=== PATIENT | male | born 1995 | race Caucasian/White ===

== ENCOUNTER 2019-08-26 20:46 | Inpatient (IN) | payer BC, OTHER ==
--- NOTE | 2019-08-26 21:13 | ED ---
General Adult HPI <Fabi Arellano - Last Filed: 08/26/19 22:42> - General Source: patient, police, RN notes reviewed, old records reviewed Mode of arrival: ambulatory Limitations: no limitations <Car Lewis - Last Filed: 08/27/19 03:38> - General Chief complaint: Psychiatric Symptoms Stated complaint: Suicidal statements Time Seen by Provider: 08/26/19 20:54 - History of Present Illness Initial comments: 24-year-old male patient presents to ED for evaluation of suicidal ideations. Patient was reportedly posting videos online of him making suicidal statements. Patient also reportedly had a mound of a powder on these videos has reportedly a benzodiazepine or possibly fentanyl. Police Department did bring patient in. Patient states that he is not feeling suicidal at this time. Denies doing anything to hurt himself or taking any drugs. Denies any homicidal ideations. Denies any physical complaints. Systemic: Pt denies fatigue, fever/chills, rash. Pt denies weakness, night swe ats, weight loss. Neuro: Pt denies headache, visual disturbances, syncope or pre-syncope. HEENT: Pt denies ocular discharge or irritation, otalgia, rhinorrhea, pharyngitis or notable lymphadenopathy. Cardiopulmonary: Pt denies chest pain, SOB, heart palpitations, dyspnea on exertion. Abdominal/GI: Pt denies abdominal pain, n/v/d. : Pt denies dysuria, burning w/ urination, frequency/urgency. Denies new onset urinary or bowel incontinence. MSK: Pt denies myalgia, loss of strength or function in extremities. Neuro: Pt denies new onset weakness, paresthesias. (Car Lewis) - Related Data Allergies Allergy/AdvReac Type Severity Reaction Status Date / Time No Known Allergies Allergy Verified 08/26/19 20:52 Review of Systems ROS Other: All systems not noted in ROS Statement are negative. <Fabi Arellano - Last Filed: 08/26/19 22:42> ROS Other: All systems not noted in ROS Statement are negative. <Car Lewis - Last Filed: 08/27/19 03:38> ROS Statement: Those systems with pertinent positive or pertinent negative responses have been documented in the HPI. Past Medical History Past Medical History: No Reported History History of Any Multi-Drug Resistant Organisms: None Reported Past Surgical History: No Surgical Hx Reported Past Psychological History: Anxiety Smoking Status: Current every day smoker Past Alcohol Use History: None Reported <Car Lewis - Last Filed: 08/27/19 03:38> General Exam Limitations: no limitations <Car Lewis - Last Filed: 08/27/19 03:38> - General Exam Comments Initial Comments: Constitutional: NAD, AOX3, Pt has pleasant affect. HEENT: NC/AT, trachea midline, neck supple, no lymphadenopathy. Posterior pharynx non erythematous, without exudates. External ears appear normal, without discharge. Mucous membranes moist. Eyes PERRLA, EOM intact. There is no scleral icterus. No pallor noted. Cardiopulmonary: RRR, no murmurs, rubs or gallops, no JVD noted. Lungs CTAB in anterior and posterior lobo. No peripheral edema. Abdominal exam: Abdomen soft and non-distended. Abdomen non-tender to palpation in all 4 quadrants. Bowel sounds active in LLQ. No hepatosplenomegaly. No ecchymosis Neuro: CN II-XII grossly intact. No nuchal rigidity. No raccon eyes, no ibarra sign, no hemotympanum. No cervical spinal tenderness. MSK: No posterior calf tenderness bilaterally, homans sign negative bilaterally. Posterior tibialis and radial pulse +2 bilaterally. Sensation intact in upper and lower extremities. Full active ROM in upper and lower extremities, 5/5 stregnth. (Car Lewis) Course Vital Signs 08/26/19 08/27/19 20:47 02:42 Temperature 97.7 F Pulse Rate 80 89 Respiratory 18 18 Rate Blood Pressure 132/78 117/63 O2 Sat by Pulse 100 96 Oximetry Medical Decision Making <Fabi Arellano - Last Filed: 08/26/19 22:42> - Lab Data Result diagrams: 08/26/19 22:46 08/26/19 22:46 - EKG Data -: EKG Interpreted by Me (and Dr. Arellano ) <Car Lewis - Last Filed: 08/27/19 03:38> - Medical Decision Making I personally saw and evaluated the patient who admitted to making suicidal statements, admitted depression and polysubstance abuse. Patient reports she is currently on methadone but abuses fentanyl and is on high doses of benzodiazepines. Patient states that he is worried he will withdraw here in the emergency department. Given patient's history and suicidal statements I agree with the emergency psychiatric service assessment that the patient requires inpatient psychiatric care. I completed the psychiatric certification. Patient will be treated for possible withdrawal here in the emergency department. (Fabi Arellano) 24-year-old male patient presents to ED for evaluation of suicidal ideations. Patient was reportedly posting videos online of him making suicidal statements. Patient also reportedly had a mound of a powder on these videos has reportedly a benzodiazepine or possibly fentanyl. Police Department did bring patient in. Patient states that he is not feeling suicidal at this time. Denies doing anything to hurt himself or taking any drugs. Denies any homicidal ideations. Denies any physical complaints. Patient vital signs are stable, afebrile. Physical exam did not display acute pathology. Patient was evaluated by EPS who recommended admission. They do request that patient is observed in ED until morning. Laboratory investigations are significant for UDS positive for opiates, methadone, benzodiazepines, cocaine. EKG is nonischemic. Case discussed with Dr. Arellano. (Car Lewis) - Lab Data Lab Results 08/26/19 08/26/19 08/27/19 Range/Units 22:46 22:46 02:44 WBC 8.1 (3.8-10.6) k/uL RBC 5.14 (4.30-5.90) m/uL Hgb 14.3 (13.0-17.5) gm/dL Hct 44.1 (39.0-53.0) % MCV 85.8 (80.0-100.0) fL MCH 27.9 (25.0-35.0) pg MCHC 32.5 (31.0-37.0) g/dL RDW 13.3 (11.5-15.5) % Plt Count 206 (150-450) k/uL Neutrophils % 43 % Lymphocytes % 40 % Monocytes % 7 % Eosinophils % 8 % Basophils % 0 % Neutrophils # 3.5 (1.3-7.7) k/uL Lymphocytes # 3.2 (1.0-4.8) k/uL Monocytes # 0.5 (0-1.0) k/uL Eosinophils # 0.6 (0-0.7) k/uL Basophils # 0.0 (0-0.2) k/uL Sodium 139 (137-145) mmol/L Potassium 4.4 (3.5-5.1) mmol/L Chloride 100 (98-107) mmol/L Carbon Dioxide 30 (22-30) mmol/L Anion Gap 9 mmol/L BUN 17 (9-20) mg/dL Creatinine 0.63 L (0.66-1.25) mg/dL Est GFR (CKD-EPI)AfAm >90 (>60 ml/min/1.73 sqM) Est GFR (CKD-EPI)NonAf >90 (>60 ml/min/1.73 sqM) Glucose 92 (74-99) mg/dL Calcium 10.1 (8.4-10.2) mg/dL Total Bilirubin 0.4 (0.2-1.3) mg/dL AST 42 (17-59) U/L ALT 44 (4-49) U/L Alkaline Phosphatase 114 (38-126) U/L Total Protein 7.9 (6.3-8.2) g/dL Albumin 4.8 (3.5-5.0) g/dL Salicylates <1.0 mg/dL Urine Opiates Screen Detected H (NotDetected) Ur Oxycodone Screen Not Detected (NotDetected) Urine Methadone Screen Detected H (NotDetected) Ur Propoxyphene Screen Not Detected (NotDetected) Acetaminophen <10.0 ug/mL Ur Barbiturates Screen Not Detected (NotDetected) U Tricyclic Antidepress Not Detected (NotDetected) Ur Phencyclidine Scrn Not Detected (NotDetected) Ur Amphetamines Screen Not Detected (NotDetected) U Methamphetamines Scrn Not Detected (NotDetected) U Benzodiazepines Scrn Detected H (NotDetected) Urine Cocaine Screen Detected H (NotDetected) U Marijuana (THC) Screen Not Detected (NotDetected) - EKG Data EKG Comments: Ventricular rate 96, OR ubtervak 154, QRS 88, QT/QTc 388/490, NSR, No concern for acute ischemia. (Car Lewis) Disposition <Fabi Arellano - Last Filed: 08/26/19 22:42> Is patient prescribed a controlled substance at d/c from ED?: No <Car Lewis - Last Filed: 08/27/19 03:38> Clinical Impression: Depression, Polysubstance abuse Disposition: ADMITTED IP TO THIS HOSP Condition: Serious Referrals: None,Stated [Primary Care Provider] - 1-2 days
[2019-08-26] MEDS ORDERED: ALPRAZolam 0.5 MG TAB PO STA (21:43)
[2019-08-26] MEDS ORDERED: SODIUM CHLORIDE 0.9% 1,000 ML IV ONE (22:31)
[2019-08-26] MEDS ORDERED: LORazepam 2 MG/ML INJ IV STA (22:35)
[2019-08-26 23:16] LABS: Basophils % (A) 0 %; Eosinophils # (A) 0.6 k/uL (0-0.7); Eosinophils % (A) 8 %; HCT 44.1 % (39.0-53.0); HGB 14.3 gm/dL (13.0-17.5); Lymphocytes # (A) 3.2 k/uL (1.0-4.8); Lymphocytes % (A) 40 %; MCH 27.9 pg (25.0-35.0); MCHC 32.5 g/dL (31.0-37.0); MCV 85.8 fL (80.0-100.0); Mean Platelet Volume 8.1; Monocytes # (A) 0.5 k/uL (0-1.0); Monocytes % (A) 7 %; Neutrophils # (A) 3.5 k/uL (1.3-7.7); Neutrophils % (A) 43 %; Platelet Count 206 k/uL (150-450); RBC 5.14 m/uL (4.30-5.90); RDW 13.3 % (11.5-15.5); WBC 8.1 k/uL (3.8-10.6)
[2019-08-26 23:34] LABS: ALT 44 U/L (4-49); AST 42 U/L (17-59); Acetaminophen <10.0 ug/mL; African American GFR (CKD) >90 (>60 ml/min/1.73 sqM); Albumin 4.8 g/dL (3.5-5.0); Alkaline Phosphatase 114 U/L (38-126); Anion Gap 9 mmol/L; Blood Urea Nitrogen 17 mg/dL (9-20); Calcium 10.1 mg/dL (8.4-10.2); Carbon Dioxide 30 mmol/L (22-30); Chloride 100 mmol/L (98-107); Glucose 92 mg/dL (74-99); Non-African American GFR(CKD) >90 (>60 ml/min/1.73 sqM); Potassium 4.4 mmol/L (3.5-5.1); Salicylate <1.0 mg/dL; Sodium 139 mmol/L (137-145); Total Bilirubin 0.4 mg/dL (0.2-1.3); Total Protein 7.9 g/dL (6.3-8.2)
[2019-08-27 03:11] LABS: Amphetamine Screen,Urine Not Detected (NotDetected); Barbiturate Screen,Urine Not Detected (NotDetected); Benzodiazepines Screen,Urine Detected (NotDetected); Cocaine Screen,Urine Detected (NotDetected); Methadone Screen, Urine Detected (NotDetected); Opiate Screen,Urine Detected (NotDetected); Oxycodone Screen, Urine Not Detected (NotDetected); Phencyclidine Screen,Urine Not Detected (NotDetected); Tricyclic Antidepressant,Urine Not Detected (NotDetected); Urn Cannabinoid Scrn Not Detected (NotDetected)
[2019-08-27] MEDS ORDERED: MAG HYDROX/AL HYDROX/SIMETH 30 ML CUP PO PRN (09:30)
[2019-08-27] MEDS ORDERED: ACETAMINOPHEN TAB 325 MG TAB PO PRN (09:30)
[2019-08-27] MEDS ORDERED: MAGNESIUM HYDROXIDE 2,400 MG/10 ML CUP PO PRN (09:30)
[2019-08-27] MEDS: NICOTINE 21MG/24HR PATCH TRANSDERM SCH ×3 (10:14→17:00)
[2019-08-27] MEDS: METHADONE 10 MG TAB PO SCH (11:24)
[2019-08-27] MEDS: ALPRAZolam 1 MG TAB PO PRN ×2 (11:25→19:52)
[2019-08-27] MEDS ORDERED: ZIPRASIDONE 20 MG VIAL IM PRN (11:34)
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
[2019-08-27] MEDS ORDERED: ONDANSETRON 4 MG TAB PO PRN (13:21)
[2019-08-27] MEDS ORDERED: DICYCLOMINE 20 MG TAB PO PRN (13:21)
[2019-08-27] MEDS: IBUPROFEN 600 MG TAB PO PRN (13:39)
--- NOTE | 2019-08-27 17:52 | P.MDCNMH ---
History of Present Illness H&P Date: 08/27/19 Chief Complaint: Medical management 24-year-old male with no significant past medical history presents to the ED after police was contacted after patient made videos on of him posting suicidal gestures along with amount of powder reportedly benzodiazepine or fentanyl. He was subsequently admitted for further monitoring. [facility] physicians has been consulted for medical management of this patient. Patient was seen and examined. No acute events overnight. Patient reports symptoms of opiate withdrawal. The symptoms include frontal headache along with nausea and chills. He denies any lower extremity edema, vomiting, fever, cough, chest pain, shortness of breath, changes in urination or bowel habits. No changes in appetite or weight. He denies any dizziness, numb ness/weakness/tingling of the extremities. Patient does report daily fentanyl use of 0.5 g along with cocaine. Patient states that he has a strong tolerance to benzodiazepines. He has been on a methadone program out [facility] receiving 30 mg daily. Chart review shows stable vital signs. CBC was unremarkable. CMP showed creatinine of 0.63. UDS was positive for opiates, methadone, benzodiazepine and cocaine. Acetaminophen level was negative. Salicylate level was negative. Review of Systems Pertinent positives and negatives as discussed in HPI, a complete review of systems was performed and all other systems are negative. Past Medical History Past Medical History: No Reported History History of Any Multi-Drug Resistant Organisms: None Reported Past Surgical History: No Surgical Hx Reported Past Psychological History: Anxiety Smoking Status: Current every day smoker Past Alcohol Use History: None Reported Medications and Allergies Home Medications Medication Instructions Recorded Confirmed Type ALPRAZolam [Xanax] 2 mg PO Q12H 08/27/19 08/27/19 History Prazosin HCl 1 mg PO HS 08/27/19 08/27/19 History QUEtiapine FUMARATE 50 - 100 mg PO HS 08/27/19 08/27/19 History Allergies Allergy/AdvReac Type Severity Reaction Status Date / Time No Known Allergies Allergy Verified 08/27/19 09:11 Physical Exam Vitals: Vital Signs Temp Pulse Pulse Resp BP BP Pulse Ox 08/27/19 17:40 98.0 F 08/27/19 08:35 97.0 F L 79 20 123/77 100 08/27/19 08:24 73 20 120/71 98 08/27/19 08:00 18 08/27/19 02:42 89 18 117/63 96 08/26/19 20:47 97.7 F 80 18 132/78 100 Intake and Output 08/27/19 08/27/19 08/27/19 06:59 14:59 22:59 Other: Weight 84.538 kg General: [non toxic], [no distress], [appears at stated age] Derm: [warm], [dry] Head: [atraumatic], [normocephalic], [symmetric] Eyes: [EOMI], [no lid lag], [anicteric sclera] Mouth: [no lip lesion], [mucus membranes moist] Cardiovascular: [S1S2 reg], [no murmur], [positive posterior tibial pulse bilateral], Lungs: [CTA bilateral], [no rhonchi, no rales] , [no accessory muscle use] Abdominal: [soft], [ nontender to palpation], [no guarding], [no appreciable organomegaly] Ext: [no gross muscle atrophy], [no edema], [no contractures] Neuro: [ CN II-XI grossly intact], [no focal neuro deficits] Psych: [Alert], [oriented], [appropriate affect] Cranial Nerve Examination - Cranial Nerves Cranial Nerve II- Optic: Intact Cranial Nerve III- Oculomotor: Intact Cranial Nerve IV- Trochlear: Intact Cranial Nerve V- Trigeminal: Intact Cranial Nerve - Abducens: Intact Cranial Nerve VII- Facial: Intact Cranial Nerve VIII- Auditory: Intact Cranial Nerve IX- Glossopharyngeal: Intact Cranial Nerve X- Vagus: Intact Cranial Nerve XI- Accessory: Intact Cranial Nerve XII- Hypoglossal: Intact Results CBC & Chem 7: 08/26/19 22:46 08/26/19 22:46 Labs: Abnormal Lab Results - Last 24 Hours (Table) 08/26/19 08/27/19 Range/Units 22:46 02:44 Creatinine 0.63 L (0.66-1.25) mg/dL Urine Opiates Screen Detected H (NotDetected) Urine Methadone Screen Detected H (NotDetected) U Benzodiazepines Scrn Detected H (NotDetected) Urine Cocaine Screen Detected H (NotDetected) Assessment and Plan Assessment: Polysubstance abuse including opiates, benzodiazepine and cocaine Nicotine addiction Patient's UDS was positive for opiates, benzodiazepine and cocaine. He is continued on methadone 30 mg by mouth daily at this time. He is being given Xanax 1 mg by mouth 3 times a day as needed for anxiety. Zofran as needed for nausea or vomiting. Patient also has nicotine patch. Thank you for this consult. Please call with any additional questions or concerns.
[2019-08-27] MEDS ORDERED: QUEtiapine 50 MG TAB PO SCH (21:00)
[2019-08-27] MEDS ORDERED: PRAZOSIN 1 MG CAP PO SCH (21:00)
[2019-08-28] MEDS: ALPRAZolam 1 MG TAB PO PRN ×2 (04:27→12:01)
[2019-08-28 04:30] VITALS: RESP 14; TEMP 97.9
[2019-08-28 07:17] LABS: Basophils % (A) 0 %; Eosinophils # (A) 0.2 k/uL (0-0.7); Eosinophils % (A) 4 %; HCT 40.8 % (39.0-53.0); HGB 13.1 gm/dL (13.0-17.5); Lymphocytes # (A) 2.8 k/uL (1.0-4.8); Lymphocytes % (A) 45 %; MCHC 32.1 g/dL (31.0-37.0); MCV 87.2 fL (80.0-100.0); Mean Platelet Volume 7.9; Monocytes # (A) 0.5 k/uL (0-1.0); Monocytes % (A) 8 %; Neutrophils # (A) 2.6 k/uL (1.3-7.7); Neutrophils % (A) 42 %; Platelet Count 179 k/uL (150-450); RBC 4.68 m/uL (4.30-5.90); RDW 13.2 % (11.5-15.5); WBC 6.3 k/uL (3.8-10.6)
[2019-08-28 07:27] LABS: ALT 31 U/L (4-49); AST 25 U/L (17-59); African American GFR (CKD) >90 (>60 ml/min/1.73 sqM); Albumin 3.9 g/dL (3.5-5.0); Alkaline Phosphatase 87 U/L (38-126); Anion Gap 7 mmol/L; Bilirubin,Unconjugated 0.6 mg/dL (0.0-1.1); Blood Urea Nitrogen 19 mg/dL (9-20); Calcium 9.7 mg/dL (8.4-10.2); Carbon Dioxide 30 mmol/L (22-30); Chloride 103 mmol/L (98-107); Glucose 92 mg/dL (74-99); Non-African American GFR(CKD) >90 (>60 ml/min/1.73 sqM); Potassium 3.8 mmol/L (3.5-5.1); Sodium 140 mmol/L (137-145); Total Bilirubin 0.4 mg/dL (0.2-1.3); Total Protein 6.7 g/dL (6.3-8.2)
[2019-08-28] MEDS: NICOTINE 21MG/24HR PATCH TRANSDERM SCH (09:08)
[2019-08-28] MEDS: METHADONE 10 MG TAB PO SCH (09:08)
[2019-08-28] MEDS: IBUPROFEN 600 MG TAB PO PRN (09:53)
[2019-08-28 12:02] VITALS: BP 125/73; PULSE 93
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
[2019-08-28] MEDS ORDERED: QUEtiapine 25 MG TAB PO SCH (21:00)
== END 2019-08-28 15:14 | disposition home or self-care (01) | DRG 881 ==
LOC: EC 20:46 → 3MHU 08-27 08:10
PROVIDERS: ADMIT Psychiatry & Neurology Psychiatry; ATTEND Psychiatry & Neurology Psychiatry
DX: F32.9 Major depressive disorder, single episode, unspecified (principal); F11.20 Opioid dependence, uncomplicated; R45.851 Suicidal ideations; F13.10 Sedative, hypnotic or anxiolytic abuse, uncomplicated; F14.10 Cocaine abuse, uncomplicated; F17.200 Nicotine dependence, unspecified, uncomplicated; F43.10 Post-traumatic stress disorder, unspecified; F41.9 Anxiety disorder, unspecified; Z62.810 Personal history of physical and sexual abuse in childhood; Z65.3 Problems related to other legal circumstances; Z79.899 Other long term (current) drug therapy
CPT/HCPCS: 36415; 80053; 80306; 80329; 82075; 82248; 83036; 83520; 84443; 85025; 93005; 96361; 96374; 99285

== ENCOUNTER 2019-10-17 12:08 | Emergency (ER) | payer BC ==
[2019-10-17 12:14] VITALS: RESP 18
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
[2019-10-17 15:15] LABS: Appearance,Urine Clear (Clear); Bilirubin,Urine Negative (Negative); Blood,Urine Negative (Negative); Color,Urine Yellow; Glucose,Urine (UA) Negative (Negative); Ketones,Urine Negative (Negative); Leukocyte Esterase,Urine Negative (Negative); Nitrite,Urine Negative (Negative); Protein,Urine Trace (Negative); Specific Gravity,Urine 1.027 (1.001-1.035)
[2019-10-17 15:24] LABS: Amphetamine Screen,Urine Not Detected (NotDetected); Barbiturate Screen,Urine Not Detected (NotDetected); Benzodiazepines Screen,Urine Detected (NotDetected); Cocaine Screen,Urine Not Detected (NotDetected); Methadone Screen, Urine Detected (NotDetected); Opiate Screen,Urine Not Detected (NotDetected); Oxycodone Screen, Urine Not Detected (NotDetected); Phencyclidine Screen,Urine Not Detected (NotDetected); Tricyclic Antidepressant,Urine Not Detected (NotDetected); Urn Cannabinoid Scrn Detected (NotDetected)
[2019-10-17 16:03] VITALS: BP 118/84; PULSE 78; TEMP 98
[2019-10-17] MEDS ORDERED: LIDOCAINE 5% PATCH TOPICAL STA (16:50)
== END 2019-10-17 17:16 | disposition home or self-care (01) ==
LOC: EC 12:08
DX: F19.10 Other psychoactive substance abuse, uncomplicated (principal); R07.81 Pleurodynia; S70.01XA Contusion of right hip, initial encounter; F41.9 Anxiety disorder, unspecified; F17.200 Nicotine dependence, unspecified, uncomplicated; Z79.899 Other long term (current) drug therapy; V49.40XA Driver injured in collision with unspecified motor vehicles in traffic accident, initial encounter; Y92.410 Unspecified street and highway as the place of occurrence of the external cause
CPT/HCPCS: 73502; 80306; 81003; 82075; 99284

== ENCOUNTER 2021-09-18 15:49 | Emergency (ER) | payer BC ==
[2021-09-18 15:57] VITALS: TEMP 98.2
[2021-09-18] MEDS ORDERED: ONDANSETRON 4 MG/2 ML VIAL IVP STA ×2 (17:02→19:23)
[2021-09-18] MEDS ORDERED: SODIUM CHLORIDE 0.9% 2,000 ML IV STA (17:02)
[2021-09-18] MEDS ORDERED: cloNIDine HCL 0.1 MG TAB PO STA (17:03)
[2021-09-18] MEDS ORDERED: LORazepam 2 MG/ML INJ IV STA ×2 (17:03→19:23)
[2021-09-18 17:42] LABS: Basophils % (A) 0 %; Eosinophils % (A) 1 %; Lymphocytes # (A) 1.1 k/uL (1.0-4.8); Lymphocytes % (A) 19 %; MCH 28.7 pg (25.0-35.0); MCHC 33.3 g/dL (31.0-37.0); MCV 86.1 fL (80.0-100.0); Mean Platelet Volume 8.9; Monocytes # (A) 0.2 k/uL (0-1.0); Monocytes % (A) 4 %; Neutrophils # (A) 4.1 k/uL (1.3-7.7); Neutrophils % (A) 75 %; Platelet Count 181 k/uL (150-450); RBC 4.88 m/uL (4.30-5.90); RDW 12.5 % (11.5-15.5); WBC 5.5 k/uL (3.8-10.6)
[2021-09-18 17:52] LABS: ALT 20 U/L (4-49); AST 21 U/L (17-59); African American GFR (CKD) >90 (>60 ml/min/1.73 sqM); Albumin 4.8 g/dL (3.5-5.0); Alkaline Phosphatase 72 U/L (38-126); Anion Gap 13 mmol/L; Blood Urea Nitrogen 26 mg/dL (9-20); Carbon Dioxide 23 mmol/L (22-30); Chloride 102 mmol/L (98-107); Glucose 99 mg/dL (74-99); Lipase 37 U/L (23-300); Non-African American GFR(CKD) >90 (>60 ml/min/1.73 sqM); Potassium 4.2 mmol/L (3.5-5.1); Sodium 138 mmol/L (137-145); Total Bilirubin 0.6 mg/dL (0.2-1.3); Total Protein 7.7 g/dL (6.3-8.2)
--- NOTE | 2021-09-18 19:10 | ED ---
General Adult HPI - General Chief complaint: Nausea/Vomiting/Diarrhea Stated complaint: Detoxing Time Seen by Provider: 09/18/21 16:30 Source: patient Mode of arrival: ambulatory Limitations: no limitations - History of Present Illness Initial comments: 26-year-old male presents to the emergency department reporting that he is detoxing from benzodiazepines and opiates. Patient is normally prescribed 2 mg of Xanax twice daily by his primary care physician for anxiety. Reports that he does abuse this medication and takes it in excess. He also snorts Fentanyl which is not prescribed to him. Yesterday he was in trouble with police and bases all of his medication as well as the narcotics. States he has not taken any Xanax or fentanyl in the past 48 hours. Today he began developing withdrawal symptoms which include anxiousness, nausea, vomiting and heart racing. Family at bedside has been attempting to get him into a rehab facility. He denies any seizure history from withdrawal. No suicidal or homicidal ideations. No other alleviating, precipitating or modifying factors - Related Data Home Medications Medication Instructions Recorded Confirmed ALPRAZolam [Xanax] 2 mg PO BID 08/27/19 10/17/19 QUEtiapine FUMARATE 100 mg PO HS 08/27/19 10/17/19 Methadone (Unknown Dose) 1 tab PO DAILY 10/17/19 10/17/19 Previous Rx's Medication Instructions Recorded ALPRAZolam [Xanax] 2 mg PO Q12H 3 Days #6 tab 09/18/21 Ondansetron Odt [Zofran Odt] 4 mg PO Q8HR PRN #10 tab 09/18/21 cloNIDine HCL 0.1 mg PO TID PRN #9 tablet 09/18/21 Allergies Allergy/AdvReac Type Severity Reaction Status Date / Time No Known Allergies Allergy Verified 09/18/21 15:58 Review of Systems ROS Statement: Those systems with pertinent positive or pertinent negative responses have been documented in the HPI. ROS Other: All systems not noted in ROS Statement are negative. Past Medical History Past Medical History: No Reported History History of Any Multi-Drug Resistant Organisms: None Reported Past Surgical History: No Surgical Hx Reported Past Psychological History: Anxiety Smoking Status: Never smoker Past Alcohol Use History: None Reported Past Drug Use History: Heroin, Marijuana General Exam Limitations: no limitations General appearance: alert, in no apparent distress Head exam: Present: atraumatic, normocephalic, normal inspection Eye exam: Present: normal appearance, PERRL, EOMI. Absent: scleral icterus, conjunctival injection, periorbital swelling ENT exam: Present: normal exam, mucous membranes moist Neck exam: Present: normal inspection. Absent: tenderness, meningismus, lymphadenopathy Respiratory exam: Present: normal lung sounds bilaterally. Absent: respiratory distress, wheezes, rales, rhonchi, stridor Cardiovascular Exam: Present: regular rate, normal rhythm, normal heart sounds. Absent: systolic murmur, diastolic murmur, rubs, gallop, clicks GI/Abdominal exam: Present: soft, normal bowel sounds. Absent: distended, tenderness, guarding, rebound, rigid Extremities exam: Present: normal inspection, full ROM, normal capillary refill. Absent: tenderness, pedal edema, joint swelling, calf tenderness Back exam: Present: normal inspection Neurological exam: Present: alert, oriented X3, CN II-XII intact Psychiatric exam: Present: normal affect, normal mood Skin exam: Present: warm, dry, intact, normal color. Absent: rash Course Vital Signs 09/18/21 09/18/21 09/18/21 15:51 16:32 19:32 Temperature 98.2 F Pulse Rate 87 76 63 Respiratory 18 18 16 Rate Blood Pressure 127/84 123/84 112/66 O2 Sat by Pulse 100 98 98 Oximetry Medical Decision Making - Medical Decision Making Upon arrival patient is placed into room 26. A thorough history and physical exam was performed. IV access established. Patient is given a 2 L bolus of normal saline, former grams of Zofran, 1 mg of Ativan and 0.1 mg of clonidine. Laboratory studies are reviewed and within normal limits. Vitals within normal limits. Patient given a second dose of Ativan and Zofran. Feels comfortable with discharge home at this time. Family is on the phone with the rehab facility that states that the patient must call back in the morning for possible discharges. Patient is given a short prescription for benzodiazepines as well as clonidine and Zofran. Instructed on proper use. He will be discharged home in the care of his parents. Instructed to return for any worsening symptoms. Patient was discharged in stable condition - Lab Data Result diagrams: 09/18/21 17:28 09/18/21 17:28 Lab Results 09/18/21 09/18/21 Range/Units 17:28 17:28 WBC 5.5 (3.8-10.6) k/uL RBC 4.88 (4.30-5.90) m/uL Hgb 14.0 (13.0-17.5) gm/dL Hct 42.0 (39.0-53.0) % MCV 86.1 (80.0-100.0) fL MCH 28.7 (25.0-35.0) pg MCHC 33.3 (31.0-37.0) g/dL RDW 12.5 (11.5-15.5) % Plt Count 181 (150-450) k/uL MPV 8.9 Neutrophils % 75 % Lymphocytes % 19 % Monocytes % 4 % Eosinophils % 1 % Basophils % 0 % Neutrophils # 4.1 (1.3-7.7) k/uL Lymphocytes # 1.1 (1.0-4.8) k/uL Monocytes # 0.2 (0-1.0) k/uL Eosinophils # 0.0 (0-0.7) k/uL Basophils # 0.0 (0-0.2) k/uL Sodium 138 (137-145) mmol/L Potassium 4.2 (3.5-5.1) mmol/L Chloride 102 (98-107) mmol/L Carbon Dioxide 23 (22-30) mmol/L Anion Gap 13 mmol/L BUN 26 H (9-20) mg/dL Creatinine 0.80 (0.66-1.25) mg/dL Est GFR (CKD-EPI)AfAm >90 (>60 ml/min/1.73 sqM) Est GFR (CKD-EPI)NonAf >90 (>60 ml/min/1.73 sqM) Glucose 99 (74-99) mg/dL Calcium 10.0 (8.4-10.2) mg/dL Total Bilirubin 0.6 (0.2-1.3) mg/dL AST 21 (17-59) U/L ALT 20 (4-49) U/L Alkaline Phosphatase 72 (38-126) U/L Total Protein 7.7 (6.3-8.2) g/dL Albumin 4.8 (3.5-5.0) g/dL Lipase 37 (23-300) U/L Disposition Clinical Impression: Polysubstance abuse, Benzodiazepine withdrawal Disposition: HOME SELF-CARE Condition: Stable Instructions (If sedation given, give patient instructions): Opioid Withdrawal (ED) Additional Instructions: Call tomorrow to check the status of your bed at the treatment center. Return for any new or worsening symptoms. Prescriptions: cloNIDine HCL 0.1 mg PO TID PRN #9 tablet PRN Reason: Agitation Or Acute Anxiety ALPRAZolam [Xanax] 2 mg PO Q12H 3 Days #6 tab Ondansetron Odt [Zofran Odt] 4 mg PO Q8HR PRN #10 tab PRN Reason: Nausea Is patient prescribed a controlled substance at d/c from ED?: Yes When asked, does pt state using other controlled substances?: No If prescribed controlled substance>3 days was MAPS reviewed?: Prescribed <3 Days Referrals: Denny Belcher MD [Primary Care Provider] - 1-2 days Time of Disposition: 19:10
[2021-09-18 19:32] VITALS: BP 112/66; PULSE 63; RESP 16
== END 2021-09-18 19:54 | disposition home or self-care (01) ==
LOC: EC 15:49
DX: F19.239 Other psychoactive substance dependence with withdrawal, unspecified (principal)
CPT/HCPCS: 36415; 80053; 83690; 85025; 99284; 96375; 96374; 96376; 96361; J2060; J2405

== ENCOUNTER 2023-07-21 17:40 | Inpatient (IN) | payer BC, OTHER ==
--- NOTE | 2023-07-21 18:10 | ED ---
General Adult HPI - General Source: patient, police, RN notes reviewed <Brittney Mays - Last Filed: 07/21/23 22:53> <Fahad Dcikerson - Last Filed: 07/21/23 23:24> - General Stated complaint: Petition Time Seen by Provider: 07/21/23 18:09 - History of Present Illness Initial comments: Patient is a 28-year-old male presented ER with chief complaint of EPS evaluation. Patient court petitioned. Patient denies any SI/HI/hallucinations. Denies any drugs or alcohol use today. Per court order patient was making threats to county officials. Patient sent here for evaluation. (Brittney Mays) - Related Data Home Medications Medication Instructions Recorded Confirmed No Known Home Medications 07/21/23 07/21/23 Allergies Allergy/AdvReac Type Severity Reaction Status Date / Time No Known Allergies Allergy Verified 07/21/23 20:52 Review of Systems ROS Other: All systems not noted in ROS Statement are negative. <Brittney Mays - Last Filed: 07/21/23 22:53> ROS Other: All systems not noted in ROS Statement are negative. <Fahad Dickerson - Last Filed: 07/21/23 23:24> ROS Statement: Those systems with pertinent positive or pertinent negative responses have been documented in the HPI. Past Medical History Past Medical History: No Reported History History of Any Multi-Drug Resistant Organisms: None Reported Past Surgical History: No Surgical Hx Reported Past Psychological History: Anxiety Smoking Status: Never smoker Past Alcohol Use History: None Reported Past Drug Use History: Heroin, Marijuana <Brittney Mays - Last Filed: 07/21/23 22:53> General Exam General appearance: alert, in no apparent distress Head exam: Present: atraumatic, normocephalic, normal inspection Eye exam: Present: normal appearance, PERRL, EOMI. Absent: scleral icterus, conjunctival injection, periorbital swelling Respiratory exam: Present: normal lung sounds bilaterally. Absent: respiratory distress, wheezes, rales, rhonchi, stridor Cardiovascular Exam: Present: regular rate, normal rhythm, normal heart sounds. Absent: systolic murmur, diastolic murmur, rubs, gallop, clicks Neurological exam: Present: alert, oriented X3, CN II-XII intact Psychiatric exam: Present: normal affect, normal mood Skin exam: Present: warm, dry, intact, normal color. Absent: rash <Brittney Mays - Last Filed: 07/21/23 22:53> - General Exam Comments Initial Comments: Visual Physical Exam Vital signs reviewed General: Well-appearing, nontoxic, no acute distress. Head: Normocephalic, atraumatic Eyes: PERRLA, EOMI ENT: Airway patent Chest: Nonlabored breathing Skin: No visual rash, normal skin tone Neuro: Alert and oriented 3 Musculoskeletal: No gross abnormalities (Brittney Mays) Course Vital Signs 07/21/23 18:20 Temperature 98 F Pulse Rate 86 Respiratory 18 Rate Blood Pressure 112/78 O2 Sat by Pulse 99 Oximetry Medical Decision Making <Brittney Mays - Last Filed: 07/21/23 22:53> <Fahad Dickerson - Last Filed: 07/21/23 23:24> - Medical Decision Making I performed the quick note portion of the exam. Electronically signed by Brittney Mays PA-C Was pt. sent in by a medical professional or institution ([facility], FUSE SPOOLER, urgent care, hospital, or usp...) When possible be specific @ -No Did you speak to anyone other than the patient for history (EMS, parent, family, police, friend...)? What history was obtained from this source @ -Police as patient is petitioned for EPS evaluation. Did you review nursing and triage notes (agree or disagree)? Why? @ -I reviewed and agree with nursing and triage notes Were old charts reviewed (outside hosp., previous admission, EMS record, old EKG, old radiological studies, urgent care reports/EKG's, usp records)? Report findings @ -No old charts were reviewed Differential Diagnosis (chest pain, altered mental status, abdominal pain women, abdominal pain men, vaginal bleeding, weakness, fever, dyspnea, syncope, headache, dizziness, GI bleed, back pain, seizure, CVA, palpatations, mental health, musculoskeletal)? @ -Differential Mental Health Depression, anxiety, bipolar, psychosis, schizophrenia, borderline personality, situational depression, adjustment disorder, behavioral disorder, brain tumor, malingering, substance abuse, encephalopathy, medication reaction, dementia, hypothyroidism, degenerative neurologic disorder, lupus.... This is not meant to be all-inclusive list EKG interpreted by me (3pts min.). @ -None X-rays interpreted by me (1pt min.). @ -None done CT interpreted by me (1pt min.). @ -None done U/S interpreted by me (1pt. min.). @ -None done What testing was considered but not performed or refused? (CT, X-rays, U/S, labs)? Why? @ -None What meds were considered but not given or refused? Why? @ -None Did you discuss the management of the patient with other professionals (professionals i.e. , PA, FUSE SPOOLER, lab, RT, psych nurse, social services coordinator, rebrander, teacher, hydrographical technical officer, case making machine operator)? Give summary @ -Yes, I discussed this case with Chhaya PEARSON RN who reports patient will be admitted for further treatment. Was smoking cessation discussed for >3mins.? @ -No Was critical care preformed (if so, how long)? @ -No Were there social determinants of health that impacted care today? How? (Homelessness, low income, unemployed, alcoholism, drug addiction, transportation, low edu. Level, literacy, decrease access to med. care, custodial, rehab)? @ -Homeless, unemployed, recently released from custodial Was there de-escalation of care discussed even if they declined (Discuss DNR or withdrawal of care, Hospice)? DNR status @ -No What co-morbidities impacted this encounter? (DM, HTN, Smoking, COPD, CAD, Cancer, CVA, ARF, Chemo, Hep., AIDS, mental health diagnosis, sleep apnea, morbid obesity)? @ -Mental health Was patient admitted / discharged? Hospital course, mention meds given and route, prescriptions, significant lab abnormalities, going to OR and other pertinent info. @ -Admitted. Patient is a 28 year old male presenting to the ER via police per court order for mental health evaluation. Patient in no signs of acute distress and nontoxic-appearing. Patient cleared for EPS evaluation. I spoke with Chhaya PEARSON RN who reports patient will be admitted for further care and treatment. Undiagnosed new problem with uncertain prognosis? @ -No Drug Therapy requiring intensive monitoring for toxicity (Heparin, Nitro, Insulin, Cardizem)? @ -No Were any procedures done? @ -No Diagnosis/symptom? @ -Mental health evaluation Acute, or Chronic, or Acute on Chronic? @ -Acute Uncomplicated (without systemic symptoms) or Complicated (systemic symptoms)? @ -Uncomplicated Side effects of treatment? @ -No Exacerbation, Progression, or Severe Exacerbation? @ -No Poses a threat to life or bodily function? How? (Chest pain, USA, CA, pneumonia, PE, COPD, DKA, ARF, appy, cholecystitis, CVA, Diverticulitis, Homicidal, Suicidal, threat to staff... and all critical care pts) @ -Yes, patient has made threats to government officials. (Brittney Mays) Patient was pending psychiatric evaluation. I spoke with EPS who believes the patient should be admitted to inpatient psychiatry based on his presentation. Clinical certificate was completed by myself. Patient made aware of the plans. (Fahad Dickerson) Disposition Time of Disposition: 22:57 <Brittney Mays - Last Filed: 07/21/23 22:53> <Fahad Dickerson - Last Filed: 07/21/23 23:24> Clinical Impression: Mental health disorder Disposition: ADMITTED IP TO THIS HOSP Condition: Stable Referrals: None,Stated [Primary Care Provider] - 1-2 days
[2023-07-21] MEDS: NICOTINE 21MG/24HR PATCH TRANSDERM STA (23:29)
[2023-07-21 23:34] LABS: Amphetamine Screen,Urine Not Detected (NotDetected); Barbiturate Screen,Urine Not Detected (NotDetected); Benzodiazepines Screen,Urine Not Detected (NotDetected); Cocaine Screen,Urine Not Detected (NotDetected); Methadone Screen, Urine Not Detected (NotDetected); Opiate Screen,Urine Not Detected (NotDetected); Oxycodone Screen, Urine Not Detected (NotDetected); Phencyclidine Screen,Urine Not Detected (NotDetected); Tricyclic Antidepressant,Urine Not Detected (NotDetected); Urn Cannabinoid Scrn Detected (NotDetected)
[2023-07-22] MEDS ORDERED: HALOPERIDOL LACTATE 5 MG/ML 1 ML VIAL IM PRN (02:47)
[2023-07-22] MEDS ORDERED: LORazepam 2 MG/ML INJ IM PRN (02:48)
[2023-07-22] MEDS ORDERED: MAGNESIUM HYDROXIDE 2,400 MG/30 ML CUP PO PRN (02:50)
[2023-07-22] MEDS ORDERED: MAG HYDROX/AL HYDROX/SIMETH 30 ML CUP PO PRN (02:50)
[2023-07-22] MEDS: NICOTINE 21MG/24HR PATCH TRANSDERM SCH (08:52)
--- NOTE | 2023-07-22 14:14 | P.HP ---
Psychiatric H&P - . H&P Date: 07/22/23 History & Physical: Allergies Allergy/AdvReac Type Severity Reaction Status Date / Time No Known Allergies Allergy Verified 07/21/23 20:52 Vital Signs Temp 97.4 F L 07/22/23 02:26 Pulse 94 07/22/23 02:26 Resp 16 07/22/23 02:26 BP 112/78 07/21/23 18:20 Pulse Ox 99 07/22/23 02:26 FiO2 Intake & Output 07/21/23 07/22/23 07/22/23 18:59 06:59 18:59 Weight 81.647 kg 75.5 kg Laboratory Last Values Urine Opiates Screen Not Detected (NotDetected) 07/21/23 22:53 Ur Oxycodone Screen Not Detected (NotDetected) 07/21/23 22:53 Urine Methadone Screen Not Detected (NotDetected) 07/21/23 22:53 Ur Barbiturates Screen Not Detected (NotDetected) 07/21/23 22:53 U Tricyclic Antidepress Not Detected (NotDetected) 07/21/23 22:53 Ur Phencyclidine Scrn Not Detected (NotDetected) 07/21/23 22:53 Ur Amphetamines Screen Not Detected (NotDetected) 07/21/23 22:53 U Methamphetamines Scrn Not Detected (NotDetected) 07/21/23 22:53 U Benzodiazepines Scrn Not Detected (NotDetected) 07/21/23 22:53 Urine Cocaine Screen Not Detected (NotDetected) 07/21/23 22:53 U Marijuana (THC) Screen Detected (NotDetected) H 07/21/23 22:53 SARS-CoV-2 (PCR) Not Detected (Not Detectd) 07/21/23 22:45 07/22/23 08:17 IDENTIFYING DATA: Patient is a 28-year-old male who currently is homeless, and is currently unemployed and has no kids. 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 HPI: Patient presented to the hospital on 07/21. As per EPS note, "Pt was brought in by PD on a learning support services director order. Pt was petitioned by his corrections case dueñas. Pt was recently kicked out of the skilled nursing in [place], [place]. He was emailing fire prevention chief and making threats. He has been accusing the skilled nursing of embezzlement. During assessment pt is hyperverbal and tangential. Pt is cooperative with RN but visibly upset about being at the hospital. Pt speaks about about [employer] form and his all caps name and getting his declaration status, and that he is a 14th amend citizen. "I gave my all caps names and they thought I was an artificial person, I am going to respresent myself from now on". Pt rambles and is fixated on the government. Pt has a lack of insight into his mental health and need for treatment. "You all just think I am crazy". Pt is not on any medications. No current medical issues. Pt is homeless with no resources. He has no finances and per petition not caring for his own needs. No supports. Recently arrested and on probation, His initial charge was delivering/manufacturing drugs per pt. He states that he was dealing drugs and was using substances at that time. He denies any recent use of ETOH or substances." Patient states his PO sent him to [facility] for an eval, because of threatening emails that he had sent to the [facility] court. States he told the court they should be charged with [facility] felony suresh. He is focused on court, the government, etc. States he has no problems with his mood or anxiety. States that he has no problems sleeping, or with his appetite. Patient states that he is the most mentally stable that he has been in years. Patient was rambling, delusional, endorsing paranoia. Focused on discharge. Very poor insight and judgment. He states he does not want to take medication. Pension Adviser explained the court process to the patient. Patient stated he is Patient denies any suicidal or homicidal ideations intent or plan. At this time patient denies any auditory or visual hallucinations. Patient denies any flight of ideas racing thoughts and increased in goal directed behavior. Patient admits to using marijuana. Patients UDS positive for marijuana. PAST PSYCHIATRIC HISTORY: Patient states that he has a history of anxiety and depression and polysubstance abuse. Last on this unit in August of 2019. No psychiatric follow up, did see dr Hdez years ago. Denies suicide attempts in the past. PMH:As per ER note ALLERGIES: as per EMR CHEMICAL DEPENDENCY HISTORY: as per HPI FAMILY PSYCHIATRIC/SUBSTANCE USE HISTORY:denies SOCIAL HISTORY: Patient was born and raised in [place], [place] and moved to [place] and is now living in [place]. He states that he is homeless , currently unemployed . Patient claims that he has 2 years of college and recently transferred to a different college before taking the year off. Is currently on probation for delivery and manufacturing of drugs. MENTAL STATUS EXAM: General Appearance: Patient appears to be stated age is alert, difficult to direct, intrusive and demanding. Patient appears to have fair hygiene and grooming. Multiple tattoos. Wearing street clothing. Behavior: Patient is seated without any agitated behavior. Guarded/evasive. Minimizing need for treatment Speech: Patient's speech is fluent and nonpressured. Circumstantial. Rapid Mood/Affect: Patient reports their mood is "great", affect is congruent and constricted. Evasive, minimizing need for treatment Suicidality/Homicidality: Patient denies having any homicidal ideation intent or plan. Denies any suicidal ideations intent or plan Perceptions: Patient denies any visual hallucinations and denies any auditory hallucinations Though content/process: Demanding, preoccupied with discharge. Memory and concentration: AOX3, grossly intact for the purposes of this session. Can spell "WORLD" backwards Judgment and insight: poor/impulsive STRENGTHS/WEAKNESSES: strength is that patient is resilient. Weakness is that patient has poor judgment and is impulsive INTELLECT: average IMPRESSIONS: psychosis, unspecified cannabis use disorder PLAN: -Patient is admitted under involuntary status to [facility]HU for stabilization of psychiatric symptoms and safety. Patient has not signed adult voluntary form or medication consent and is placed in patient's chart. A second certification was completed and along with petition will be filed for court. -Medications : Will start patient on Abilify 5mg daily for mood stabilization, trazodone 100 mg nightly as needed for sleep. -Ativan and Haldol PRN for agitation/aggression -Patient was counselled on substance abuse and desired to cut back on use -Patient was informed of the risks, benefits and side effects of the medication -Internal Medicine consult to perform medical evaluation and physical. -NRT - nonsmoker -SW on board for discharge planning. Encourage patient to participate in groups to work on coping skills. Will await deferral and court date. 07/22/23 13:29 07/22/23 14:12
[2023-07-22] MEDS: ARIPiprazole 5 MG TAB PO SCH (14:50)
[2023-07-22] MEDS: LORazepam 1 MG TAB PO PRN (14:50)
[2023-07-22] MEDS: haloperidoL 5 MG TAB PO PRN (15:55)
[2023-07-22] MEDS: NICOTINE GUM (POLACRILEX) 2 MG GUM BUCCAL PRN (15:56)
[2023-07-22] MEDS: ACETAMINOPHEN TAB 325 MG TAB PO PRN (20:11)
[2023-07-22] MEDS: traZODone HCL 100 MG TAB PO PRN (20:52)
[2023-07-23 07:31] LABS: Basophils % (A) 1 %; Eosinophils % (A) 1 %; HCT 44.2 % (39.0-53.0); HGB 15.1 gm/dL (13.0-17.5); Lymphocytes # (A) 1.5 k/uL (1.0-4.8); Lymphocytes % (A) 34 %; MCHC 34.1 g/dL (31.0-37.0); Mean Platelet Volume 9.4; Monocytes # (A) 0.3 k/uL (0-1.0); Monocytes % (A) 7 %; Neutrophils # (A) 2.4 k/uL (1.3-7.7); Neutrophils % (A) 55 %; Platelet Count 141 k/uL (150-450); RBC 5.02 m/uL (4.30-5.90); RDW 12.7 % (11.5-15.5); WBC 4.3 k/uL (3.8-10.6)
[2023-07-23 08:02] LABS: ALT 19 U/L (4-49); AST 21 U/L (17-59); African American GFR (CKD) >90 (>60 ml/min/1.73 sqM); Albumin 4.6 g/dL (3.5-5.0); Alkaline Phosphatase 74 U/L (38-126); Anion Gap 9 mmol/L; Blood Urea Nitrogen 24 mg/dL (9-20); Calcium 9.7 mg/dL (8.4-10.2); Carbon Dioxide 24 mmol/L (22-30); Chloride 107 mmol/L (98-107); Glucose 91 mg/dL (74-99); Non-African American GFR(CKD) >90 (>60 ml/min/1.73 sqM); Potassium 4.4 mmol/L (3.5-5.1); Sodium 140 mmol/L (137-145); Total Bilirubin 0.8 mg/dL (0.2-1.3)
--- NOTE | 2023-07-23 22:55 | P.PN ---
Progress Note - Text Progress Note Date: 07/23/23 Interval History: The patient was seen today as coverage for Dr. Palm. Their chart was reviewed, and the case was discussed with the nursing staff. The patient reports fair sleep and appetite. The patient has been participating in groups and other unit activities. The patient has been taking their psychiatric medications and denies side effects. The patient reports feeling more stable mentally and minimizes depression and anxiety symptoms. He presents with more organized thoughts and behavior. Speech was not rapid and patient was responding to redirection. He was fixated on discharge. The patient denies suicidal or homicidal ideation. There are no reports of delusions, or hallucinat ions. MENTAL STATUS EXAM: General Appearance: Patient appears to be stated age is alert, fair hygiene and grooming. Wearing street clothing. Behavior: Patient is seated without any agitated behavior. Guarded/evasive. Speech: Patient's speech is fluent and non pressured. Circumstantial. Mood/Affect: Patient reports their mood is "anxious" affect is congruent and constricted. Suicidal /Homicidal risk: Patient denies having any homicidal ideation intent or plan. Denies any suicidal ideation intent or plan Perceptions: Patient denies any visual hallucinations and denies any auditory flanagan llucinations Though content/process: Demanding, preoccupied with discharge. Memory and concentration: AOX3, grossly intact for the purposes of this session. Judgment and insight: poor/impulsive IMPRESSIONS: psychosis, unspecified cannabis use disorder History of PTSD PLAN: -Patient is admitted under involuntary status to [facility] for stabilization of psychiatric symptoms and safety. Patient has not signed adult voluntary form or medication consent and is placed in patient's chart. A second certification was completed and along with petition will be filed for court. Continue inpatient psychiatric hospitalization. Implement the following precautions as recommended by the admitting psychiatrist: elopement and suicide. Consult the medical team immediately if any medical concerns arise. Educate the patient on the benefits of participating in groups and other unit activities and encourage active participation. Medications: Continue Abilify 5mg daily for mood stabilization, Continue Trazodone 100 mg nightly as needed for sleep. Continue PRN psychiatric Medications including Ativan and Haldol PRN for agitation/aggression
[2023-07-24 08:32] LABS: Chol/HDL Ratio 2.31 Ratio; LDL Cholesterol,Calculated 62.6 mg/dL (0.0-131.0)
--- NOTE | 2023-07-25 10:32 | P.PN ---
Progress Note - Text Progress Note Date: 07/25/23 Interval History: Patient was seen wandering the hallways and was directable and agreeable to sp meme with commercial real estate underwriter in the office. Patient states he is a little anxious at this time, just from being hospitalized. He has been compliant with medications, and offers no complaints. Patient is fairly focused on discharge and seeing his city marshal. He was fairly superficial today with commercial real estate underwriter. Minimizing his need for hospitalization. Patient claims he is sleeping well at night, and his appetite is good. He is attending groups, and doing well on the unit. At this time patient denies any suicidal or homical ideations, intent or plan. Patient denies any auditory, visual hallucinations and denies any paranoia or delusions. Patient denies any side effects from the medications and has been compliant with meds. MENTAL STATUS EXAM: General Appearance: Patient appears to be stated age is alert, difficult to direct, intrusive and demanding. Patient appears to have fair hygiene and grooming. Multiple tattoos. Wearing street clothing. Behavior: Patient is seated without any agitated behavior. Minimizing need for treatment, improving mildly Speech: Patient's speech is fluent and nonpressured. Mood/Affect: Patient reports their mood is "a bit anxious", affect is congruent and constricted. minimizing need for treatment Suicidality/Homicidality: Patient denies having any homicidal ideation intent or plan. Denies any suicidal ideations intent or plan Perceptions: Patient denies any visual hallucinations and denies any auditory hallucinations Though content/process: preoccupied with discharge. More logical. Superficial. Memory and concentration: AOX3, grossly intact for the purposes of this session. Judgment and insight: Poor/superficial, improving mildly IMPRESSIONS: psychosis, unspecified cannabis use disorder PLAN: -Patient is admitted under involuntary status to [facility] for stabilization of psychiatric symptoms and safety. Patient has not signed adult voluntary form or medication consent and is placed in patient's chart. -Medications : increase Abilify 7.5mg daily for mood stabilization, change trazodone 100 mg to qhs scheduled for sleep. -Ativan and Haldol PRN for agitation/aggression -NRT - nonsmoker -SW on board for discharge planning. Encourage patient to participate in groups to work on coping skills. Will await deferral and court date.
--- NOTE | 2023-07-25 11:46 | P.PN ---
Progress Note - Text Progress Note Date: 07/24/23 Interval History: The patient was seen today as coverage for Dr. Palm. Their chart was reviewed, and the case was discussed with the nursing staff. The patient was evaluated today while he was sitting comfortably and he was seen socially interacting with other peers with no signs of distress. the patient reported fair sleep and appetite and he presented in good hygiene. The patient has been taking his psychiatric medications and denies side effects. He reported feeling frustrated about staying in the hospital. The patient denied suicidal or homicidal ideation. No reports of hallucinations, paranoid ideation, or delusions. The patient reported that he had a psychiatric follow-up appointment at [facility] in [place]. No behavioral problems reported or noticed. The patient was discussing constitution and government concepts in a complex and professional manner that may be difficult for the average person to understand. He mentioned "Jacked" and inquired about a "non-citizen national passport," noting that many individuals may not be aware of its existence. The p atient disclosed that he pleaded guilty to the letter he authored, completed one year of probation, but still needs to pay the fine. MENTAL STATUS EXAM: General Appearance: Patient appears to be stated age is alert, fair hygiene and grooming. Wearing street clothing. Behavior: Patient is seated without any agitated behavior. Guarded/evasive. Speech: Patient's speech is fluent and non pressured. Circumstantial. Mood/Affect: Patient reports their mood is "anxious" affect is congruent and constricted. Suicidal /Homicidal risk: Patient denies having any homicidal ideation intent or plan. Denies any suicidal ideation intent or plan Perceptions: Patient denies any visual hallucinations and denies any auditory hallucinations Though content/process: Demanding, preoccupied with discharge. Memory and concentration: AOX3, grossly intact for the purposes of this session. Judgment and insight: improving IMPRESSIONS: psychosis, unspecified cannabis use disorder History of PTSD PLAN: -Patient is admitted under involuntary status to [facility] for stabilization of psychiatric symptoms and safety. Patient has not signed adult voluntary form or medication consent and is placed in patient's chart. A second certification was completed and along with petition will be filed for court. Continue inpatient psychiatric hospitalization. Implement the following precautions as recommended by the admitting psychiatrist: elopement and suicide. Consult the medical team immediately if any medical concerns arise. Educate the patient on the benefits of participating in groups and other unit a ctivities and encourage active participation. Medications: Continue Abilify 5mg daily for mood stabilization, Continue Trazodone 100 mg nightly as needed for sleep. Continue PRN psychiatric Medications including Ativan and Haldol PRN for agitation/aggression
[2023-07-25 13:38] LABS: Appearance,Urine Clear (Clear); Bilirubin,Urine Negative (Negative); Blood,Urine Negative (Negative); Color,Urine Yellow; Glucose,Urine (UA) Negative (Negative); Ketones,Urine 1+ (Negative); Leukocyte Esterase,Urine Negative (Negative); Mucus,Urine Many /hpf; Nitrite,Urine Negative (Negative); Protein,Urine 1+ (Negative); RBC,Urine <1 /hpf (0-5); Specific Gravity,Urine 1.039 (1.001-1.035); WBC,Urine 1 /hpf (0-5)
[2023-07-25] MEDS: traZODone HCL 100 MG TAB PO SCH (20:06)
[2023-07-26] MEDS: diphenhydrAMINE 50 MG CAP PO STA (04:30)
[2023-07-26] MEDS: ARIPiprazole 5 MG TAB PO SCH (08:23)
[2023-07-26] MEDS ORDERED: diphenhydrAMINE 50 MG CAP PO PRN (12:46)
--- NOTE | 2023-07-26 12:47 | P.PN ---
Progress Note - Text Progress Note Date: 07/26/23 Interval History: Patient was seen wandering the hallways and was directable and agreeable to lianna valentine with bid writer in the office. Patient states he is feeling under the weather, with some congestion. Manager Automotive told patient that we will perform another COVID test on him today, just to be safe. Patient agreeable. Asked patient to quarantine to his room until we get the test results back. Will also order a decongestant, patient agreeable. He has been compliant with medications, and offers no complaints. Patient claims he did not sleep well last night, and his appetite is good. He is attending groups, and doing well on the unit. At this time patient denies any suicidal or homicidal ideations, intent or plan. Patient denies any auditory, visual hallucinations and denies any paranoia or delusions. Patient denies any side effects from the medications and has been compliant with meds. MENTAL STATUS EXAM: General Appearance: Patient appears to be stated age is alert, difficult to direct, intrusive and demanding. Patient appears to have fair hygiene and grooming. Multiple tattoos. Wearing street clothing. Behavior: Patient is seated without any agitated behavior. Minimizing need for treatment, improving mildly Speech: Patient's speech is fluent and nonpressured. Mood/Affect: Patient reports their mood is "ok", affect is congruent and constricted. minimizing need for treatment Suicidality/Homicidality: Patient denies having any homicidal ideation intent or plan. Denies any suicidal ideations intent or plan Perceptions: Patient denies any visual hallucinations and denies any auditory hallucinations Though content/process: preoccupied with discharge. More logical. mildly improving Memory and concentration: AOX3, grossly intact for the purposes of this session. Judgment and insight: Poor/superficial, improving mildly IMPRESSIONS: psychosis, unspecified cannabis use disorder PLAN: -Patient is admitted under involuntary status to [facility]HU for stabilization of psychiatric symptoms and safety. Patient has not signed adult voluntary form or medication consent and is placed in patient's chart. -Medications : increase Abilify 10mg daily for mood stabilization, increase trazodone 150 mg to qhs scheduled for sleep. Sudafed prn, benadryl prn qhs for allergic sx/insomnia -Ativan and Haldol PRN for agitation/aggression -NRT - nonsmoker -SW on board for discharge planning. Encourage patient to participate in groups to work on coping skills. Will await deferral and court date.
[2023-07-26] MEDS: PSEUDOEPHEDRINE 30 MG TAB PO PRN (13:05)
[2023-07-26] MEDS: traZODone HCL 50 MG TAB PO SCH (20:07)
[2023-07-27 07:19] VITALS: RESP 16
[2023-07-27] MEDS: ARIPiprazole 10 MG TAB PO SCH (08:10)
--- NOTE | 2023-07-27 09:33 | P.PN ---
Subjective Progress Note Date: 07/27/23 Principal diagnosis: Psychotic disorder unspecified Personality disorder with borderline histrionic traits Cannabis use disorder unspecified Patient Name: Eagle Teran Date of : 89 Patient Status: Inpatient Attending Provider: Sergo Palm Date: 07/27/23 Subjective data: The patient was seen chart was reviewed and case discussed with the nursing staff She was seen in the dining area Patient reports that he to the court since they were messing around with him for the last 3 years and that he has been fine $1700 for something that should've been resolved He says that he send them a email which was somewhat of a threatening type to the city plant supervisor who would then guarded him arrested and that he was brought to the hospital He says that he is doing better He admits that he was using drugs in the past but does not do so now He says that he is here because of being court ordered He says that he used to use opiates before but has been clean for the last 2 years Patient says that he is currently homeless and that he has plans to go back to the local alf He says that he is emotionally feeling better and is not having any issues or concerns He denies any suicidal or homicidal ideations He says that his sleep and appetite are well Mental status examination: Reveals a young male who currently appears in no acute physical distress Patient is alert and oriented to place and person Speech was clear coherent and relevant Thought processes are goal-directed sequential Patient however comes across as somewhat expansive and rationalize and intellectualize a Insight and his problem is impaired Formal and operational judgment and insight remains concrete and self-centered IMPRESSIONS: psychosis, unspecified cannabis use disorder PLAN: Agree with the current treatment plan as delineated by Dr. Gee -Patient is admitted under involuntary status to [facility] for stabilization of psychiatric symptoms and safety. Patient has not signed adult voluntary form or medication consent and is placed in patient's chart. -Medications : Continue Abilify 10mg daily for mood stabilization, Continue trazodone 150 mg to qhs scheduled for sleep. Sudafed prn, benadryl prn qhs for allergic sx/insomnia -Ativan and Haldol PRN for agitation/aggression -NRT - nonsmoker -SW on board for discharge planning. Encourage patient to participate in groups to work on coping skills. Will await deferral and court date. Telly Lugo M.D. Objective - Vital Signs Vital signs: Vital Signs Temp 97.9 F 07/27/23 06:11 Pulse 104 H 07/27/23 06:11 Resp 16 07/27/23 06:11 BP 123/78 07/27/23 06:11 Pulse Ox 97 07/26/23 04:27 FiO2 - Labs CBC & Chem 7: 07/23/23 06:52 07/23/23 06:52
[2023-07-28 07:22] VITALS: BP 124/72; PULSE 87; TEMP 97.8
--- NOTE | 2023-07-28 12:54 | P.DS ---
Providers Date of admission: 07/22/23 01:57 Attending physician: Sergo Palm MD Consults: 07/22/23 02:50 Consult Physician Routine Consulting Provider: Shivam Blas Consult Reason/Comments: Medical managment Do you want consulting provider notified?: Yes Primary care physician: Stated None - Discharge Diagnosis(es) (1) Depressive disorder Current Visit: No Status: Resolved Priority: Low Hospital Course: Alk phos ideation patient received a routine physical examination acute physical issues were identified at this time that require attention Visit for the medication management and general stabilization after this overdose patient had taken his migraine medications to get high Psychiatric rounds are planning to psychoeducation projection rationalization and intellectualization denial and substance use disorders. Therapy is focused on progress up with care improving his coping abilities with a multimodal treatment Patient however remains rationalize intellectualize and remains projective insight and his problem remains partial patient however does not meet the criteria for ongoing inpatient psychotic hospitalization Patient is referred to follow-up with substance use program as well as local mental health services for outpatient counseling and supportive care Patient not exhibit any side effects from his current medications. Please refer the daily progress notes for further details Telly Lugo M.D. Patient Condition at Discharge: Stable Plan - Discharge Summary Discharge Rx Participant: Yes New Discharge Prescriptions: No Action No Known Home Medications Discharge Medication List No Known Home Medications 07/21/23 [History] Follow up Appointment(s)/Referral(s): [facility]atelynn Greg[facility] [Outside] - 1 Week [facility] [Outside] - 08/03/23 12:30 pm [facility] - [facility] Week Patient Instructions/Handouts: How to Stop Smoking (DC), Cannabis Abuse (DC), Psychotic Disorder (DC) Activity/Diet/Wound Care/Special Instructions: Avoid the use of street drugs and alcohol. Take all medications as prescribed. When you are in need of refills on your medications, please contact your medical provider and/or outpatient psychiatrist/provider to have this done. Please go to your scheduled outpatient appointment for aftercare treatment. If symptoms r eturn or become worse, call the crisis line at and/or go to the nearest emergency room for evaluation. National Suicide Hotline 013.
== END 2023-07-28 14:04 | disposition home or self-care (01) | DRG 754 ==
LOC: EC 17:40 → 3MHU 07-22 01:57
PROVIDERS: ADMIT Psychiatry & Neurology Psychiatry; ATTEND Psychiatry & Neurology Psychiatry
DX: F32.A Depression, unspecified (principal); F12.10 Cannabis abuse, uncomplicated; F60.3 Borderline personality disorder; Z11.52 Encounter for screening for COVID-19; Z28.310 Unvaccinated for COVID-19; F43.10 Post-traumatic stress disorder, unspecified; F17.290 Nicotine dependence, other tobacco product, uncomplicated; Z71.6 Tobacco abuse counseling; Z79.899 Other long term (current) drug therapy; Z56.0 Unemployment, unspecified; Z59.02 Unsheltered homelessness; Z65.3 Problems related to other legal circumstances; Z71.51 Drug abuse counseling and surveillance of drug abuser
CPT/HCPCS: 80053; 80061; 80306; 81001; 82075; 83036; 84443; 85025; 87635; 87636; 99285